=== PATIENT | female | born 1945 | race Caucasian/White ===

== ENCOUNTER 2023-04-28 11:52 | Emergency (ER) | payer MEDICARE, SELFPAY ==
[2023-04-28 12:07] VITALS: BP 126/79; PULSE 103; RESP 18; TEMP 37; O2SAT 94
[2023-04-28 12:31] VITALS: BP 126/79; PULSE 103; RESP 18; TEMP 37; O2SAT 94
--- NOTE | 2023-04-28 12:56 | W.ED.GENAD ---
HPI General Stated Complaint: RespSymp Mode of arrival: ambulatory. BALDOMERO: 4 Date/Time Provider Initiated Documentation: 04/28/23 12:14. Limitations to Documentation: no limitations. Information obtained by: patient, RN notes reviewed and old records reviewed. HPI Narrative: 77-year-old female presents to the ER with a chief complaint of URI type symptoms, headache dry mouth cough diarrhea and chills. She presents with her family member. She does test positive for COVID on arrival. She is currently taking a oral medication for breast cancer which is not chemo. She denies any other medications or past medical history at this time. Related Data Home Medications Medication Instructions Recorded Confirmed benzonatate 100 mg capsule 100 mg PO TID PRN cough #14 caps 04/28/23 letrozole 2.5 mg tablet 2.5 mg PO DAILY 04/28/23 04/28/23 nirmatrelvir 300 mg (150 mg See Rx Instructions PO .COMPLEX 04/28/23 x2)-ritonavir 100 mg tablet,dose #30 dose pk pack (Paxlovid) potassium chloride 40 mEq/15 mL 40 meq (15 mL) PO DAILY Low 04/28/23 oral liquid Potassium 5 days #75 mL prednisone 20 mg tablet 40 mg (2 x 20 mg) PO DAILY 5 days 04/28/23 #10 tabs Previous Rx's Medication Instructions Recorded benzonatate 100 mg capsule 100 mg PO TID PRN cough #14 caps 04/28/23 nirmatrelvir 300 mg (150 mg See Rx Instructions PO .COMPLEX 04/28/23 x2)-ritonavir 100 mg tablet,dose #30 dose pk pack (Paxlovid) potassium chloride 40 mEq/15 mL 40 meq (15 mL) PO DAILY Low 04/28/23 oral liquid Potassium 5 days #75 mL prednisone 20 mg tablet 40 mg (2 x 20 mg) PO DAILY 5 days 04/28/23 #10 tabs Allergies Allergy/AdvReac Type Severity Reaction Status Date / Time No Known Allergies Allergy Unverified 04/28/23 12:10 Review of Systems All systems reviewed & are unremarkable except as noted in HPI and below Cardiovascular Cardiovascular: Reports dyspnea Respiratory Respiratory: Reports dyspnea PFSH All Active Problems (Updated 04/28/23 @ 14:10 by Akilah Gonzales NP) COVID-19 (Acute) Social History Smoking/Tobacco Use Status: Never Smoking risk assessment performed?: Yes Alcohol Intake: current Alcohol Intake frequency: holidays/special occasions only Alcohol type: wine Drug use: Never Substance use type: does not use Housing: house Do you feel safe at home: Yes Do you feel safe in your relationship?: Yes PAWSS Have you Been Recently Intoxicated or Drunk Within the Last 30 days?: No Have you Ever Experienced Previous Episodes of Alcohol Withdrawal?: No Have you ever Experienced Withdrawal Seizures?: No Have you ever Experienced Delirium Tremens(DT)s?: No Have you ever undergone Alcohol Rehabilitation Treatment (i.e, inpt ot outpatient treatment programs)?: No Have you ever Experienced Blackouts?: No Have you ever Combined Alcohol with other Downers within the last 90 days?: No Have you ever Combined Alcohol with any other Substance of Abuse during the last 90 days?: No Result: 0 Exam Narrative Exam Narrative: Constitutional: Alert and oriented x3. Appears stated age. Normal body habitus. Head: Normocephalic, no trauma. Eyes: Pupils PERRL, Red reflex noted, EOM's intact. Eyelids symmetrical without lesions, discharge, or swelling. ENT: Bilateral TM's WNL, External ear normal to inspection, no mastoid TTP, swelling, or erythema, Nasal turbinates WNL, no nasal discharge. Normal dentition, Posterior pharynx slightly erythemic, uvula midline tonsils 1+ bilaterally, no exudate. Chest: HR 103, Normal S1, S2, distal pulses intact. Resp: She does have congested lungs, no wheezes bilaterally, rhonchi in the bases. No stridor. She is speaking in full sentences. Abdomen: Soft, non-distended, nontender to palpation all 4 quadrants, no masses no guarding. Musculoskeletal: Unable to assess gait, 5/5 strength to all four extremities. Skin: No suspicious rashes or lesions. Capillary refill less than 2 sec. Neurologic: Cranial nerves II-XII intact. Alert and oriented x 3. Motor: No deficits noted. Hematologic/Lymphatic: No ecchymosis, no lymphadenopathy. Course Vital Signs Vital signs: Vital Signs Temperature 37.0 C 04/28/23 12:07 Pulse 103 H 04/28/23 12:07 Respiratory Rate 18 04/28/23 12:07 Blood Pressure 126/79 04/28/23 12:07 Pulse Oximetry 94 04/28/23 12:07 Temperature 37.0 C 04/28/23 12:31 Temperature Source Tympanic 04/28/23 12:31 Pulse 103 H 04/28/23 12:31 Respiratory Rate 18 04/28/23 12:31 Respiratory Effort Non-Labored, Short of Breath 04/28/23 12:09 Blood Pressure 126/79 04/28/23 12:31 Blood Pressure Position Sitting 04/28/23 12:31 Pulse Oximetry 94 04/28/23 12:31 Oxygen Delivery Method Room Air 04/28/23 12:31 Oxygen Flow Rate 0 04/28/23 12:31 Pain Level 5 04/28/23 12:31 Medical Decision Making 77-year-old female presents to the ER with a chief complaint of URI type symptoms, headache dry mouth cough diarrhea and chills. She presents with her family member. She does test positive for COVID on arrival. She is currently taking a oral medication for breast cancer which is not chemo. She denies any other medications or past medical history at this time. Positive COVID. Will give prescription for Paxlovid I did discuss the backorder with her, prednisone extended for 5 days and albuterol inhaler. Discussed home care strict return instructions and follow-up care. She verbalizes understanding. 1507: BMP comes back with potassium of 2.8 after patient has already been discharged, patient called and left a voicemail for her to return my call. I will discuss the results with her and prescription for potassium supplements and encourage patient to increase her potassium intake p.o. and take a potassium supplement and follow-up with primary care provider in the next 2 to 3 days. Sodium is also slightly low at 134, the rest of the BMP is largely within normal limits. Prescription sent by mail since not reached by telephone. This text was generated using [employer] system, please disregard any oddities of phrase or misspellings. Lab Data Lab results reviewed: Yes I reviewed the patient's lab results. Labs: Laboratory Tests Range/Units 04/28/23 14:30 Sodium (136-145) mmol/L 134 L Potassium (3.5-5.1) mmol/L 2.8 L* Chloride (98-107) mmol/L 96 L Carbon Dioxide (21.0-32.0) mmol/L 28.8 Anion Gap (3-11) mmol/L 9.2 BUN (7-18) mg/dL 11 Creatinine (0.55-1.02) mg/dL 0.7 Est GFR (CKD-EPI 2020) (mL/min/1.73m2) 89.58 Glucose (74-106) mg/dL 100 Calcium (8.5-10.1) mg/dL 9.2 Quality:SDOH Health Related Social Needs: No Data to Display Discharge Plan Disposition Patient Disposition: Home Condition: Stable Discharge Details Clinical Impression: COVID-19 Primary Care Provider: None,None ED Provider: Akilah Gonzales Home Meds and New Rx's Prescriptions: New prednisone 20 mg tablet 40 mg PO DAILY 5 Days Qty: 10 0RF Paxlovid 300 mg (150 mg x 2)-100 mg tablets,dose pack See Rx Instructions .ROUTE .COMPLEX Qty: 30 0RF Rx Instructions: take TWO 150 mg tablets of nirmatrelvir with ONE 100 mg tablet of ritonavir twice daily for 5 days benzonatate 100 mg capsule 100 mg PO TID PRN (Reason: cough) Qty: 14 0RF Rx Instructions: Take 1 capsule up to 3 times daily as needed for cough potassium chloride 40 mEq/15 mL liquid 40 meq PO DAILY 5 Days Qty: 75 0RF Rx Instructions: Please take daily by mouth mixed with 8 oz of fluid for the next 5 days. No Action letrozole 2.5 mg tablet 2.5 mg PO DAILY Discharge Instructions Instructions: Viral Syndrome (ED), COVID-19 (Coronavirus Disease 2019) (ED) Additional Instructions: You have tested positive for covid 19. Please take the medications as directed. You may need to call multiple pharmacies to see who has the paxlovid available. Please take a multivitamin including vitamin D, zinc and vitamin C. Use the albuterol inhaler 1 to 2 puffs every 4-6 hours as needed. Also take the prednisone 2 tablets daily x 5 days. Follow up with primary care provider in 3-5 days. Return to ED sooner if any worsening or concerns. Increase oral fluids. Discharge Data Discharge Date/Time-TO BE ENTERED AT DEPARTURE: 04/28/23 14:43
--- NOTE | 2023-04-28 13:00 | DI.RAD_ITS ---
Exam(s) XR CHEST 2V PA LATERAL EXAM: XR CHEST 2V PA LATERAL CLINICAL HISTORY: Covid +, URI TECHNIQUE: 2D digital imaging was performed of the chest. Two images were obtained. PA and lateral views were obtained. COMPARISON: No exams were available for comparison FINDINGS: MEDIASTINUM: Normal. HEART: Normal. PULMONARY VASCULATURE: Normal. LUNGS: No focal consolidating infiltrates. There is atelectasis or scarring in the left base lateral ly. There is bronchial wall thickening seen in the perihilar regions which may represent a bronchiti s or other airways disease. PLEURAL SPACE: No pleural effusion or pneumothorax. BONE:Within normal limits for the patient's age. There is a T11 compression deformity with loss of a pproximately half of the height of the vertebral body anteriorly. OTHER FINDINGS:Normal. IMPRESSION: 1. Bronchial wall thickening in the perihilar regions which may represent bronchitis or other airway inflammatory process. 2. No focal consolidating infiltrate. DATA REPOSITORY: RADIATION DOSE DELIVERED:
[2023-04-28] MEDS: Albuterol HFA 8 GM 60 PUFF INH IH (14:30)
[2023-04-28] MEDS: predniSONE 20 MG TAB 40 MG PO (14:30)
[2023-04-28] MEDS: Benzonatate 100 MG CAP PO ×2 (14:30)
[2023-04-28 14:34] VITALS: BP 139/72; PULSE 104; RESP 18; O2SAT 95
[2023-04-28 14:50] LABS: Anion Gap 9.2 mmol/L (3-11); BUN 11 mg/dL (7-18); CO2 28.8 mmol/L (21.0-32.0); CREATININE 0.7 mg/dL (0.55-1.02); Calcium 9.2 mg/dL (8.5-10.1); Chloride 96 mmol/L (98-107); Estimated GFR 89.58 (mL/min/1.73m2); Glucose 100 mg/dL (74-106); Sodium 134 mmol/L (136-145)
[2023-04-28 14:54] LABS: Potassium 2.8 mmol/L (3.5-5.1)
--- NOTE | 2023-05-02 13:24 | NUR.NOTE ---
Accessed pt chart to determine lab results. Pt called stating Akilah called her Tues, but she only just saw the message. Calling to see what it was about. Will give to Fernandez Ya. Nursing Note:
--- NOTE | 2023-05-02 13:34 | W.ED.FU ---
Follow Up Plan: Patient called emergency department after getting phone message from 04/28/2023. Patient wondering about lab results. Called patient back and informed her of critical potassium value. Patient had not filled her potassium prescription and stated that she still was not feeling good. She states only 1 episode of diarrhea. I did inform patient that with critical low potassium and not taking any supplementation that she should have her labs rechecked today also along with not feeling better from COVID and her age and concern that she again should be rechecked today including an emergency department visit or at least at minimum somewhere that can recheck her labs. Patient stated understanding of recommendation and stated she would get follow-up soon.
== END 2023-04-28 14:43 | disposition home or self-care (01) ==
PROVIDERS: Emergency Provider Registered Nurse Emergency
DX: U07.1 COVID-19 (principal); Z11.52 Encounter for screening for COVID-19; R05.1 Acute cough; R19.7 Diarrhea, unspecified
CPT/HCPCS: 80048; 99283; 71046; J7512